=== PATIENT | male | born 1960 ===

== ENCOUNTER 2016-11-22 10:33 | Day surgery (SDC) | payer OTHER ==
[~2016-11-22] VITALS: Ht 175.3 cm; Wt 83.9 kg
--- NOTE | 2016-11-22 10:11 | Pre-Procedure Note/Attestation ---
Pre-Procedure Note/Attestation Complete Prior to Procedure Planned Procedure: right Procedure Narrative: Removal of cataract and placement of intraocular lens, right eye Indications for Procedure Pre-Operative Diagnosis: Cataract, nuclear, anterior subcapsular, right eye Attestation I attest that I discussed the nature of the procedure; its benefits; risks and complications; and alternatives (and the risks and benefits of such alternatives ), prior to the procedure, with the patient (or the patient's legal printing sales representative). I attest that, if there was a reasonable possibility of needing a blood transfusion, the patient (or the patient's legal printing sales representative) was given the [facility] standardized written summary, pursuant to the [place] Blood Safety Act ([place] Health and Safety Code # 1645, as amended). I attest that I re-evaluated the patient just prior to the surgery and that there has been no change in the patient's H&P, except as documented below: Lucio Foster MD Nov 22, 2016 10:11
[2016-11-22] MEDS: Gatifloxacin Opth Solution 0.5% RIGHT EYE SCH ×3 (10:15→10:25)
[~2016-11-22 10:33] MED LIST: BSS 15ml BTL ONE; BSS 500ml btl ONE; Dexamethasone 4mg/ml vial ONE; EPINEPHrine 1mg/1ml Amp ONE; Lidocaine 1% MPF 10mg/ml 5ml ONE; Maxitrol Opth Oint 3.5gm ONE; Povidone-Iodine 5% opth solution ONE; Pred Forte 1% Opth Susp 1ml ONE; Sodium Hyaluronate 10 mg/ml 0.85ml ONE
[2016-11-22] MEDS ORDERED: NKM (11:10)
[2016-11-22] MEDS ORDERED: Akten 3.5% 1ml Btl ONE (11:13)
[2016-11-22] MEDS ORDERED: Phenylephrine 10% Opth Soln 5ml ONE (11:13)
[2016-11-22] MEDS ORDERED: Flurbiprofen 0.03% Opth Sol 2.5ml ONE (11:13)
[2016-11-22] MEDS ORDERED: Cyclopentolate 1% Opth Sol ONE (11:13)
[2016-11-22] MEDS ORDERED: Vigamox Opth Soln ONE (11:13)
[2016-11-22] MEDS: Flurbiprofen 0.03% Opth Sol 2.5ml RIGHT EYE SCH ×3 (11:20→11:38)
[2016-11-22] MEDS: Akten 3.5% 1ml Btl RIGHT EYE SCH ×3 (11:20→11:38)
[2016-11-22] MEDS: Phenylephrine 10% Opth Soln 5ml RIGHT EYE SCH ×3 (11:21→11:38)
[2016-11-22] MEDS: Cyclopentolate 1% Opth Sol RIGHT EYE SCH ×3 (11:21→11:38)
[2016-11-22] MEDS ORDERED: Tetracaine 0.5% Opth Soln ONE (11:23)
[2016-11-22 11:24] VITALS: BP 145/78
--- NOTE | 2016-11-22 12:45 | Anethesia Preoperative Eval ---
Anesthesia Pre-op PMH/ROS General Date of Evaluation: Nov 22, 2016 Anesthesiologist: Gaston ASA Score: ASA 2 Mallampati Score Class I : Soft palate, uvula, fauces, pillars visible Class II: Soft palate, uvula, fauces visible Class III: Soft palate, base of uvula visible Class IV: Only hard plate visible Mallampati Classification: Class II Surgeon: Kristin Diagnosis: Right cataract Surgical Procedure: Right cataract extraction with IOL Anesthesia History: none Family History: no anesthesia problems Allergies: Coded Allergies: No Known Allergies (Unverified , 11/22/16) Medications: see eMAR Past Medical History Cardiovascular: Reports: HTN, Denies: CAD, SD, arrhythmia, other, valve dz Pulmonary: Denies: COPD, CHEVY, asthma, other Gastrointestinal/Genitourinary: Denies: CRI, ESRD, GERD, other Neurologic/Psychiatric: Reports: depression/anxiety, Denies: CVA, TIA, dementia, other Endocrine: Denies: DM, hypothyroidism, other, steroids HEENT: Denies: [place]G (L), [place] (R), cataract (L), cataract (R), glaucoma, other Hematology/Immune: Denies: DVT, anemia, bleeding disorder, other Musculoskeletal/Integumentary: Denies: DDD, DJD, OA, RA, edema, other PSxH Narrative: eye sx Anesthesia Pre-op Phys. Exam Physician Exam Last Vital Signs Date Time Temp Pulse Resp B/P Pulse Ox O2 Delivery O2 Flow Rate FiO2 11/22/16 11:24 97.7 84 17 145/78 99 Room Air Constitutional: NAD Cardiovascular: RRR Respiratory: CTA Airway Exam Mallampati Score: Class II MO: full ROM: full Anesthesia Pre-op A/P Labs see chart Studies Pre-op Studies: EKG - sr Risk Assessment & Plan Assessment: ASA II Plan: MAC Status Change Before Surgery: No Pre-Antibiotics Drug: N/A ANNAMARIA BAUMANN M.D. Nov 22, 2016 12:45
[2016-11-22] MEDS ORDERED: Propofol 10mg/ml 20ml IV ONE (13:38)
[2016-11-22] MEDS ORDERED: DiphenhydrAMINE 50mg/ml Inj ONE (13:39)
[2016-11-22] MEDS ORDERED: LR 1000ml ONE (13:45)
[2016-11-22] MEDS ORDERED: fentaNYL 100 mcg/2 mL IV ONE (13:45)
[2016-11-22] MEDS ORDERED: Lidocaine 1% MPF 10mg/ml 5ml ONE (13:45)
[2016-11-22] MEDS ORDERED: Hydromorphone 0.5mg/0.5ml inj IVP PRN (14:00)
[2016-11-22] MEDS ORDERED: DiphenhydrAMINE 50mg/ml Inj IVP PRN (14:00)
[2016-11-22] MEDS ORDERED: LR 1000ml 1,000 ML IVLG SCH (14:00)
[2016-11-22] MEDS ORDERED: fentaNYL 100 mcg/2 mL IV PRN (14:00)
--- NOTE | 2016-11-22 14:00 | 48 Hour Post Anesthesia Eval ---
Post Anesthesia Evaluation Procedure: Right cataract extraction with IOL Date of Evaluation: Nov 22, 2016 Time of Evaluation: 15:05 Blood Pressure Systolic: 124 0: 87 Pulse Rate: 70 Respiratory Rate: 17 Temperature (Fahrenheit): 97.5 O2 Sat by Pulse Oximetry: 97 Airway: patent Nausea: No Vomiting: No Pain Intensity: 0 Hydration Status: adequate Cardiopulmonary Status: at baseline Mental Status/LOC: patient returned to baseline Post-Anesthesia Complications: 0 Follow-up care needed: ready to discharge ANNAMARIA BAUMANN M.D. Nov 22, 2016 14:00
--- NOTE | 2016-11-22 14:00 | Immediate Post-Op Evaluation ---
Immediate Post-Op Evalulation Immediate Post-Op Evalulation Procedure: Right cataract extraction with IOL Date of Evaluation: Nov 22, 2016 Time of Evaluation: 14:48 IV Fluids: 500 Blood Products: 0 Estimated Blood Loss: 0 Urinary Output: 0 Blood Pressure Systolic: 116 Blood Pressure Diastolic: 80 Pulse Rate: 77 Respiratory Rate: 16 O2 Sat by Pulse Oximetry: 100 Temperature (Fahrenheit): 97.6 Pain Score (1-10): 0 Nausea: No Vomiting: No Complications 0 Patient Status: awake, reacts, patent, none Hydration Status: adequate Drug: N/A ANNAMARIA BAUMANN M.D. Nov 22, 2016 14:00
[2016-11-22 14:43] VITALS: BP 116/80
[2016-11-22] MEDS ORDERED: Sodium Hyaluronate 10 mg/ml 0.85ml ONE (14:46)
[2016-11-22 14:48] VITALS: BP 119/74
--- NOTE | 2016-11-22 14:50 | Discharge Instructions ---
Discharge Instructions Discharge Instructions Follow Up Orders Keep shield on at all times except to place eye drops continue preop eye drops followup tomorrow [facility] Reminder Report to your physician any weight gain of 5 pounds or more in one week. Lucio Foster MD Nov 22, 2016 14:50
[2016-11-22 14:53] VITALS: BP 119/77
--- NOTE | 2016-11-22 14:54 | Brief Operative Note ---
Immediate Post Operative Note Operative Note Pre-op Diagnosis: Cataract, nuclear, anterior subcapsular, right eye Procedure: Phaco PD IOL, OD Use of vision blue for capsular staining Post-op Diagnosis: Cataract, nuclear, +4 anterior subcapsular, +3-4 Posterior subcapsular cataract , right eye Surgeon: Jaguar Foster MD Anesthesiologist: Dr Samano Specimen: none Complications: none Estimated Blood Loss: minimal Implant(s) used?: Yes - betancourt [id number] 19.0 Lucio Foster MD Nov 22, 2016 14:54
[2016-11-22 15:00] VITALS: BP 121/80
[2016-11-22 15:05] VITALS: BP 124/87
--- NOTE | 2016-11-23 01:01 | Operative Note - Dictated ---
DATE OF OPERATION: 11/22/2016 SURGEON: Lucio Foster M.D. SAP BUSINESS ANALYST: None. ANESTHESIOLOGIST: Dr. Samano. ANESTHESIA: Local/standby/monitored anesthesia care. PREOPERATIVE DIAGNOSES: Cataract, nuclear, dense anterior subcapsular, dense posterior subcapsular cataract, right eye. POSTOPERATIVE DIAGNOSES: Cataract, nuclear, dense anterior subcapsular, dense posterior subcapsular cataract, right eye. PROCEDURE: 1. Phacoemulsification of cataract, right eye. 2. Placement of posterior chamber intraocular lens, right eye (model [employer]re, [id number], power 19.0). 3. Use of VisionBlue for capsular staining, right eye. SPECIMENS: None. COMPLICATIONS: None. INDICATIONS FOR SURGERY: The patient has had painless progressive decrease in visual acuity in the right eye secondary to his cataract. The patient understands the risks of surgery including infection, bleeding, need for further surgery, loss of vision, no improvement of vision, loss of the eye, loss of life, glaucoma, retinal detachment, and understands these risks and elects to proceed with surgery. FINDINGS: The patient had a very dense anterior subcapsular cataract that was central along with a + 4 posterior subcapsular cataract. The posterior subcapsular cataract was so dense that it was decreasing my view of the anterior capsule and thus necessitated the use of VisionBlue. Operative Note: After informed consent was obtained, the patient was brought into the operating room and placed in the supine position. Cardiac and respiratory monitors were attached. A time-out was performed and all criteria were met and everyone in the room agreed. The right eye was then draped and prepped in sterile manner for ocular surgery. A lid speculum was placed in the eye. A 1% lidocaine preservative-free was injected at the approximate 9:30 limbus. A conjunctiva peritomy from approximately 9 o'clock to 10 o'clock was made and dissected posteriorly. Hemostasis was maintained with bipolar cautery. A 2.6 mm limbal incision was made and dissected anteriorly. A paracentesis was made at approximately 12 o'clock and Shugarcaine was injected into the anterior chamber followed by Healon. The anterior chamber was then entered using a 2.6 mm keratome through the limbal incision. An anterior capsulorrhexis was started, but it was obvious that it was very difficult to see the capsule secondary to a decreased red reflex due to the dense posterior subcapsular cataract nature as well as dense anterior subcapsular cataract nature. At this point, I irrigated out the Healon and placed an air bubble and then injected VisionBlue for capsular staining and then this was irrigated out. Then, the Healon was injected into the anterior chamber. I was then able to visualize the anterior capsule much better. The capsulorrhexis was then completed. Hydrodissection and hydrodelineation of the lens was then performed. The lens was then phacoemulsified using divide and conquer four-quadrant technique. Residual cortical material was then aspirated. There was a very dense posterior subcapsular cataract, which was removed as much as possible. Healon was injected into the anterior chamber capsular bag. The lens was taken from its package, placed into the cartridge, and the tip of the cartridge was placed through the limbal incision. The lens was injected into the capsular bag and centered nicely with a Sinskey hook. Healon was then aspirated from the anterior chamber and capsular bag. The lens haptics and optics were noted to be in the bag. One 10-0 nylon interrupted suture was then placed through the limbal incision. The knot was rotated and buried. The wound was checked and found to be watertight. The conjunctiva was then closed with forceps cautery. The lid speculum and drapes were removed from the eye and drops of Pred Forte and moxifloxacin were applied to the eye followed by Maxitrol ointment and a shield. The patient tolerated the procedure well and left the operating room awake, alert, and in stable condition. Lucio Fotser M.D. DR: ANTHONY JOB#: [id number] CC:
[2016-11-23 07:23] VITALS: BP 124/87
== END 2016-11-22 16:00 | disposition home or self-care (01) ==
LOC: SUR 10:33
DX: H25.811 Combined forms of age-related cataract, right eye (principal); I10 Essential (primary) hypertension; F32.9 Major depressive disorder, single episode, unspecified; F41.9 Anxiety disorder, unspecified; E66.3 Overweight; Z68.26 Body mass index [BMI] 26.0-26.9, adult
CPT/HCPCS: 66984; J0171; J1100; J1200; J2704; J3010; J7120; V2632; 94003; 94150